=== PATIENT | male | born 1930 | race Caucasian/White ===

== ENCOUNTER 2019-01-23 10:36 | Emergency (ER) | payer MEDICARE, OTHER ==
[~2019-01-23] VITALS: Ht 170.2 cm; Wt 88.5 kg
[~2019-01-23 10:36] MED LIST: ASPIR-LOW81 MG PO; ATENOLOL-CHLOR1 EAC1 PO; CALCIUM600 MG PO; FISH OIL 1,0001 EAC5 PO; HYDROCODON-ACE1 EA11 PO; KLOR-CON 1010 MEQ PO; LISINOPRIL20 MG PO; MACUVITE EYE C1 EACH PO
[2019-01-23] MEDS ORDERED: AMLODIPINE BESYL5 MG PO (10:52)
--- NOTE | 2019-01-23 15:53 | EKG ---
[facility] [address] [facility] [place] [address] Signed Normal sinus rhythm Normal ECG When compared with ECG of 13-NOV-2016 15:15, No significant change was found Confirmed by LIZA ALVARADO MD ([id number]) on 01/23/2019 3:53:04 PM Electronically Signed By: LIZA ALVARADO MD 01/23/19 1553 PATIENT NAME: ARIEL ARNOLDY SURESH Electrocardiogram DATE OF : [birth year] PHYSICIAN: LIZA ALVARADO MD REPORT #: [id number] REPORT IS CONFIDENTIAL AND NOT TO BE RELEASED WITHOUT AUTHORIZATION
[2019-01-23] MEDS ORDERED: ZOFRAN4 MG PO (17:34)
[2019-01-23] MEDS ORDERED: TYLENOL WITH C1 EACH PO (17:34)
[2019-01-23] MEDS ORDERED: PRILOSEC OTC20 MG PO (17:40)
== END 2019-01-23 17:56 | disposition home or self-care (01) ==
LOC: ED 10:36
DX: R19.00 Intra-abdominal and pelvic swelling, mass and lump, unspecified site (principal); N13.30 Unspecified hydronephrosis; E87.1 Hypo-osmolality and hyponatremia; M54.31 Sciatica, right side; N18.9 Chronic kidney disease, unspecified; M51.36 Other intervertebral disc degeneration, lumbar region; Z79.899 Other long term (current) drug therapy; Z79.82 Long term (current) use of aspirin; Z96.641 Presence of right artificial hip joint; E11.22 Type 2 diabetes mellitus with diabetic chronic kidney disease; Z85.038 Personal history of other malignant neoplasm of large intestine; Z85.46 Personal history of malignant neoplasm of prostate; I12.9 Hypertensive chronic kidney disease with stage 1 through stage 4 chronic kidney disease, or unspecified chronic kidney disease
CPT/HCPCS: 71046; 72100; 73502; 74176; 76700; 76705; 80053; 81001; 83690; 84484; 85025; 93005; 93010; 96361; 96374; 99284-25; J2270; J7030

== ENCOUNTER 2019-02-02 05:40 | Day surgery (SDC) | payer MEDICARE, OTHER ==
[~2019-02-02] VITALS: Ht 170.2 cm; Wt 88.0 kg
[~2019-02-02 05:40] MED LIST changes: +AMLODIPINE BESYL5 MG PO; +PRILOSEC OTC20 MG PO; +TYLENOL WITH C1 EACH PO; +ZOFRAN4 MG PO
--- NOTE | 2019-02-02 09:26 | NUR ---
02/02/19 0926 Genesis Jaffe 0906 PT ARRIVED IN PACU SLEEPY. BLOOD SUGAR 106 ON ARRIVAL. 0915 OXYGEN REMOVED. SATS 92-95% ON RA. NO C/O'S PAIN.
--- NOTE | 2019-02-02 10:23 | NUR ---
PT MOSTLY ALERT, ORIENTED AND SUPPORTED BY AND EXTENDED FAMILY. PT'S APPRECIATED PAINT LINE OPERATOR KATE EXPLAINING SURGERY PROCESS IN TERMS SHE FELT SHE COULD UNDERSTAND. FAMILY WAITING FOR G.DAUGHTER TO ARRIVE-SHE IS AN RN AND SEEMS TO HOLD AN IMPORTANT PLACE IN THE FAMILY. STAFF IN, PLANS ON STAYING IN RM. I EXTENDED A BLESSING AND MET WITH FAMILY OUT SIDE OF PT'S RM. HAD PRAYER WITH THEM AND GAVE REASSURANCE. WILL FOLLOW NEEDED
--- NOTE | 2019-02-02 10:26 | NUR ---
0930 PT TO ROOM ALERT AND AWAKE AT BEDSIDE. DENIES PAIN AND NAUSEA. DECLINED WATER OR SNACKS.
--- NOTE | 2019-02-02 10:28 | NUR ---
1028 PT ABLE TO VOID ABOUT 25ML OF BLOOD TINGED URINE.
--- NOTE | 2019-02-02 10:29 | NUR ---
1035 PT TAKING SIPS OF WATER TOLERATES WELL. PULSE DROPS INTO 30'S AND 40'S PT ASYMPTOMATIC.
--- NOTE | 2019-02-02 10:30 | NUR ---
NURSE FAYE SPOKE WITH KATE AGENCY DIRECTOR ABOUT LOW PULSE DETERMINED IT MAY BE LOW PERFUSION TO FINGER PULSE WAS NORMAL IN 60'S DURING PROCEDURE.
--- NOTE | 2019-02-02 19:05 | OR ---
[facility] [address] [place], [place] [address] Signed DATE OF OPERATION: 02/02/2019 SURGEON: Day Chavez MD PREOPERATIVE DIAGNOSES: 1. Large pelvic mass, incidentally found recently upon evaluation for right hip pain. 2. History of prostate cancer. POSTOPERATIVE DIAGNOSES: 1. Large pelvic mass, incidentally found recently upon evaluation for right hip pain. 2. History of prostate cancer. 3. A 2 cm defect in the distal right ureter consistent with active extrinsic compression due to the presence of a large 7 cm right pelvic wall mass. PROCEDURES PERFORMED: 1. Diagnostic cystoscopy with right retrograde pyelogram. 2. Right semi-rigid ureteroscopy with attempted ureteral stent insertion. ANESTHESIA: General. ESTIMATED BLOOD LOSS: None. COMPLICATIONS: None. SPECIMENS: None. DRAINS: None. INDICATION FOR PROCEDURE: Mr. Arnold is a very pleasant 88-year-old gentleman who recently presented to my clinic upon referral from the emergency department after he was found to have [id number] right hydroureteronephrosis associated with a large 7 cm right pelvic wall mass. He has a history of prostate cancer and was treated around a decade ago, but his followup was poor. At that time, he did not remember the last time he had undergone a PSA check. His PSA was obtained a few days ago, was found to be 110. The patient had Electronically Signed By: DAY CHAVEZ MD 02/02/19 1905 PATIENT NAME: ALIZA ARNOLD OPERATIVE REPORT DATE OF : [birth year] REPORT #: [id number] PHYSICIAN: DAY CHAVEZ MD PCP: CANDACE FAIRBANKS MD REPORT IS CONFIDENTIAL AND NOT TO BE RELEASED WITHOUT AUTHORIZATION [facility] [address] [place], [place] [address] Signed presented to the emergency department with right hip pain and was also known to be in chronic renal failure. He also has a remote history of colon cancer treated around 40 years ago. I discussed the option of attempted ureteral stent insertion in an effort to decompress his right kidney and hopefully improve his discomfort. After discussion of the risks and benefits of the procedure, the patient agreed to proceed. OPERATIVE FINDINGS: 1. On cystoscopy, there was no evidence of any suspicious masses, lesions, or stones. Bilateral ureteral orifices are in their normal anatomic location. There is some stiffness in the area of the prostatic urethra upon passage of the cystoscope, which is consistent with his previous history of radiation to the prostate gland. 2. Right retrograde pyelogram was performed, which revealed a severe narrowing of approximately 2 cm of the distal right ureter. From a retrograde pyelogram standpoint, it appeared to be a stricture. However, given his history, I suspect that the severe narrowing is due to the mass effect of the pelvic mass upon the right ureter. I attempted passage of a Sensor wire multiple times into the more proximal portion of the right ureter, however, I was unsuccessful. 3. Right semi-rigid ureteroscopy revealed normal approximately 5 cm of normal distal ureter and then the ureteral lumen significantly loses diameter, and I also believe takes a corkscrew turn of around 260 degrees. Using my ureteroscope, I attempted to pass the wire into the proximal ureter. However, I was unsuccessful. DESCRIPTION OF PROCEDURE: After informed consent was obtained, the patient was taken back to the operating room. He was transferred from the gurney to the operating room table where general anesthesia was induced. He was placed in the dorsal lithotomy position and his genitalia prepped and draped in standard sterile fashion. Using a 30-degree lens on a 22.5-Faroese introducer, rigid cystoscope was inserted through his urethra and into his bladder under direct visualization. Panendoscopic views of bladder then obtained. Please see above findings. I then turned my attention to the right ureteral orifice. I advanced a cone-tipped catheter to the level of the right UO and performed a right retrograde pyelogram, please see above findings. I then cannulated the right ureter using a Sensor wire and attempted to pass the wire to the proximal portion of collecting system. The wire coiled at around in the area of the distal ureter multiple times. I then removed the Sensor wire and advanced a semi-rigid ureteroscope into the distal right ureter, and I repeated a retrograde pyelogram. 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 I again under direct visualization, attempted to pass the wire under direct visualization and through this, strictured area without any success. I then, at this point in time, made the decision to abort the procedure to avoid any potential damage to the ureter with more aggressive attempts at passing the Electronically Signed By: DAY CHAVEZ MD 02/02/19 1905 PATIENT NAME: ALIZA ARNOLD OPERATIVE REPORT DATE OF : [birth year] REPORT #: [id number] PHYSICIAN: DAY CHAVEZ MD PCP: CANDACE FAIRBANKS MD REPORT IS CONFIDENTIAL AND NOT TO BE RELEASED WITHOUT AUTHORIZATION [address] [address] Signed wire through this fairly long area of diminutive ureter. I removed the ureteroscope and then inserted the cystoscope, and drained the patient's bladder completely. The procedure was then terminated. The patient tolerated the procedure well without any complication. He will now be transferred to the postanesthesia care unit in stable condition. DISPOSITION: I discussed the details of today's procedure with the patient's family and answered all of the questions. I informed them that I was unable to safely and successfully pass the stent into the patient's right collecting system due to the presence of significant amount of stenosis at the level of the right pelvic wall mass. I mentioned that the patient does have continued discomfort and would like to pursue treatment for this. There is always the option of a nephrostomy tube. I also reiterated the patient's most recent PSA level of today and offered for him to undergo androgen deprivation therapy in an attempt to reduce the size of this pelvic wall mass. I did inform them today that this would not guarantee reduction in the size of the mass and there is a possibility of side effects such as breast tenderness and hot flashes. The patient's family would like to think about it and then get back to me if they decide to pursue Eligard injections. Otherwise, the patient will follow up on a p.r.n. basis. MD LUANNE Lewis/ALFONSOL /[id number] Copies: ~ Electronically Signed By: DAY CHAVEZ MD 02/02/19 1905 PATIENT NAME: ALIZA ARNOLD OPERATIVE REPORT DATE OF : [birth year] REPORT #: [id number] PHYSICIAN: DAY CHAVEZ MD PCP: CANDACE FAIRBANKS MD REPORT IS CONFIDENTIAL AND NOT TO BE RELEASED WITHOUT AUTHORIZATION
== END 2019-02-02 10:50 | disposition home or self-care (01) ==
LOC: DS 05:40 → OPS 05:40 → DS 06:45 → OPS 10:50
PROVIDERS: Urology
PROC: 0TJ58ZZ Inspection of Kidney, Via Natural or Artificial Opening Endoscopic (ICD-10-PCS; principal; 2019-02-02 06:45)
PROC: BT1DYZZ Fluoroscopy of Right Kidney, Ureter and Bladder using Other Contrast (ICD-10-PCS; 2019-02-02 06:45)
DX: N13.1 Hydronephrosis with ureteral stricture, not elsewhere classified (principal); R19.00 Intra-abdominal and pelvic swelling, mass and lump, unspecified site; I12.9 Hypertensive chronic kidney disease with stage 1 through stage 4 chronic kidney disease, or unspecified chronic kidney disease; N18.4 Chronic kidney disease, stage 4 (severe); Z79.899 Other long term (current) drug therapy; Z87.891 Personal history of nicotine dependence; Z85.46 Personal history of malignant neoplasm of prostate
CPT/HCPCS: 00918; 74420; C1769; J0131; J0696; J1100; J2405; J2704; Q9967

== ENCOUNTER 2019-11-26 17:27 | Inpatient (IN) | payer MEDICARE, OTHER ==
[~2019-11-26] VITALS: Ht 170.2 cm; Wt 83.5 kg
[~2019-11-26 17:27] MED LIST changes: +AMLODIPINE BESY10 MG PO; -AMLODIPINE BESYL5 MG PO; -LISINOPRIL20 MG PO; +LISINOPRIL40 MG PO
--- NOTE | 2019-11-26 22:00 | NUR ---
2129 PATIENT ARRIVED VIA STRETCHER. REQUIRED 2PA TO MOVE OVER TO BED. PATIENT ABLE TO TURN SELF IN BED BUT IS VERY WEAK. ORIENTED X4. VS STABLE. ORAL TEMP 97.9 F. PATIENT DENIES PAIN OR ANY CONCERNS. STATES HE HAS BEEN WEAK THE LAST 3 OR 4 DAYS BUT NO OTHER SYMTPOMS. LUNGS ARE CLEAR, TOLERATING ROOM AIR. NO NAUSEA. ABD MODERATELY DISTENDED. BOWEL SOUNDS ACTIVE. PATIENT IS DUE TO VOID. DENIES NEED AT THIS TIME. FLY LOWER EXTREMITITES ARE COOL AND PALE. 2+ PITTING EDEMA NOTED. ELEVATED ON PILLOW. IV FLUIDS PER ORDER. 2ND SITE STARTED BY DORIS DAVIS. PATIENT DENIES ANY NEEDS AND REPORTS BEING COMOFRTABLE. CALL LIGHT PROVIDED.
--- NOTE | 2019-11-26 23:17 | NUR ---
PATIENT DESATS TO 87-88% ON ROOM AIR WHILE ASLEEP. 2L NC PLACED. PATIENT INCONTINENT OF URINE. ATTENDS REMOVED. PATIENT ABLE TO VOID IN URNAL. NEW LINENS PROVIDED. PATIENT DENIES ANY OTHER CONCERNS. WORK OF BREATHING APPEARS INCREASED WITH MINIMAL ACTIVITY AND AUDIBLE UPPER AIRWAY WHEEZING. PATIENT DENIES FEELING SOB. PATIENT ASSISTED TO REPOSITION WITH HOB ELEVATED.
--- NOTE | 2019-11-26 23:47 | NUR ---
PATIENT DESAT TO 70'S WHILE ON 2L NC DUE TO APPARENT SLEEP APNEA. RECOVERED WITHOUT INTERVENTIONS. HOB ELEVATED >45%.
--- NOTE | 2019-11-27 02:26 | NUR ---
PATIENT INCONTINENT OF A LARGE AMOUNT OF URINE. DHEERAJ CARE AND NEW ATTENDS APPLIED. PATIENT REPOSITIONED WITH HOB ELEVATED. PATIENT CONTINUES TO HAVE UPPER AIRWAY WHEEZING. PATIENT DENIES FEELING SOB. RR 20. O2 SAT 99% 2L NC. LUNGS ARE CLEAR. PATIENT REPORTS PAIN IN LEFT HIP. TYLENOL AND AN ICE PACK PROVIDED.
--- NOTE | 2019-11-27 04:15 | NUR ---
PATIENT INCONTINENT OF URINE. ATTENDS CHANGED. PATIENT DENIES ANY NEEDS. VS STABLE.
--- NOTE | 2019-11-27 06:45 | NUR ---
PATIENT INCONTINENT OF LARGE AMOUNT OF URINE AND LOOSE STOOL. STOOL APPEARS SEMI FORMED AND BROWN. PATIENT UNAWARE OF INCONTINENCE. ORIENTED X3, REPORTS BEING TIRED. AFEBRILE THIS MORNING. VS STABLE. PATIENT REPOSITIONED IN BED WITH WARM BLANKET PROVIDED. BREAKFAST ORDER RECEIVED.
--- NOTE | 2019-11-27 07:30 | NUR ---
REPORT RECIEVED. PATIENT IS LAYING IN BED SLEEPING. NO DISTRESS NOTED.
--- NOTE | 2019-11-27 08:00 | NUR ---
WOKE PATIENT FOR ASSESSMENT. PATIENT DENEIS PAIN. STATES HE FEELS BETTER THIS MORNING. INCONT OF URINE AND ALSO VOIDED 225 ML OF URINE TO URINAL. DENIES PAINFUL URINATION. TALKED WITH PATIENT ABOUT POC FOR DAY, INDICATES UNDERSTANDING. O2 TO RA PATIENT IS AWAKE WITH O2 SAT OF 100 ON 2 L NC. TALKED WIT PATIENT ABOUT POSSIBLE SLEEP APNEA, OF REPORT FROM AIR HOIST OPERATOR O2 SATS IN 80'S AT TIME WHEN PATIENT ASLEEP. THIS NOT WITNESSED BY ME. PATIENT IS EMOTIONAL AT TIME AND SOMEWHAT TEARY WHEN TALKING WITH HIME ABOUT HIS HEALTH. GRANDDAUGHTER IN ROOM.
--- NOTE | 2019-11-27 09:00 | NUR ---
INCONT OF URINE. WHEN CHANGING ATTENDS AND PATIENT MOVING FROM SIDE TO SIDE, PATIENT C/O INCREASED PAIN IN LEFT HIP AREA. PATIENT SAID THIS HAS BEEN BOTHERING HIM FOR SOMETIME.
--- NOTE | 2019-11-27 09:10 | NUR ---
TOOK BREAKFAST WELL. PHYS THERAPY HERE TO PATIENT WORK WITH PATIENT.
--- NOTE | 2019-11-27 09:30 | NUR ---
SPOKE WITH PATIENT BRIEFLY, BUT PT IN TO WORK WITH HIM. TWO GRANDDAUGHTERS HERE, I AM FAMILIAR WITH BOTH THEY WORK HERE, DAVONTE DAVIS AND ANUSHKA MORALEZ. PATIENT LIVES WITH HIS BELINDA [phone] HERE. DOES THE DRIVING. PATIENT HAS WALKER AT HOME AND SHOWER BENCH FOR HIS TUB/SHOWER COMBO. PATIENT DOES NOT LIKE TO SHOWER AND TAKES BATH, WAS STUCK IN THE TUB A COUPLE OF TIMES RECENTLY UNTIL OTHER FAMILY COULD COME AND HELP OUT. DAVONTE HAS GONE AND GOT A BSC AND WHEELCHAIR TO USE AT HOME. PATIENTS BATHROOM IS VERY SMALL. PATIENT INTENDS TO RETURN HOME AT DISCHARGE. DAVONTE HAS RECENTLY BEEN TALKING WITH BOTH PATIENT AND REGARDING ADVANCE DIRECTIVES AND MAYBE ASST LIVING SOMEDAY. THEY ARE NOT READY AT THIS TIME. FAMILY GETS CONCERNED SOMETIMES [place] AND NOT TELL ANYONE ELSE WHERE THEY ARE GOING. THERE ARE MULTIPLE FAMILY MEMBERS CLOSE BY TO HELP NEEDED. UNCLEAR OF NEEDS AT THIS TIME, CM WILL CONTINUE TO FOLLOW.
--- NOTE | 2019-11-27 09:45 | NUR ---
PATIENT REMAINS IN CHAIR, FAMILY MEMBERS ARE IN ROOM.
--- NOTE | 2019-11-27 11:10 | NUR ---
STOOD WITH WALKER TO VOID TO URINAL, ALSO WAS INCONT OF URINE. PATIENT THEN TRANSFERED TO BED. C/O LEFT HIP PAIN, RATES 4/10.
--- NOTE | 2019-11-27 11:21 | NUR ---
TYLENOL 500 MG PO GIVEN FOR C/O LEFT HIP PAIN.
--- NOTE | 2019-11-27 11:40 | NUR ---
SEVERAL FAMILY MEMBERS IN ROOM.
--- NOTE | 2019-11-27 12:39 | NUR ---
TOOK LUNCH WELL. DENIES PAIN. SITTING UP IN BED READING PAPER. NO FUTHER CHANGES.
--- NOTE | 2019-11-27 14:17 | NUR ---
NAPPING, NO DISTRESS NOTED.
--- NOTE | 2019-11-27 15:00 | NUR ---
DR. STOKES HERE TO SEE PATIENT. ORDERS RECIEVED TO DECREASE IVF TO 75ML/HR. THIS DONE. PATIENT WILL BE TRANSFERED TO MEDICAL FLOOR TODAY.
--- NOTE | 2019-11-27 15:20 | NUR ---
PATIENT LYING IN BED WITH EYES OPEN. REPORTS PAIN LEVEL OF 4 IN LEFT HIP. TYLENOL PREVIOUSLY ADMINISTERED. ICE PACK WAS SUPPLIED. SATS 98 ON RA. PATIENT ALERT AND ORIENTED. FAMILY AT BEDSIDE. CALL LIGHT IN REACH.
--- NOTE | 2019-11-27 16:20 | NUR ---
REPORT GIVEN TO MED-SURG.
--- NOTE | 2019-11-27 16:30 | NUR ---
HAS BEEN INC OF URINE AND HAS BEEN ABLE TO USE URINAL AT TIMES. ATTENDS CHANGED AND URINAL EMPTIED FOR 100 ML OF CLEAR YELLOW URINE.
--- NOTE | 2019-11-27 16:45 | NUR ---
TO MED-SURG VIA BED.
--- NOTE | 2019-11-27 17:11 | NUR ---
PT ARRIVED TO FLOOR VIA BED. PT IS ALERT AND ORIENTED. ABX INFUSING. LR AT 0 ON STANDBY. BOWEL TONESS HYPERACTIVE. REPORTS PAIN TO LEFT HIP. ICE APPLIED. ORIENTED TO ROOM. CALL LIGHT IN REACH. DENEIS NEEDS. FAMILY IN TO VISIT.
--- NOTE | 2019-11-27 19:35 | NUR ---
SHIFT REPORT RECIEVED FROM ANNA MARIE DAVIS. PT RESTING IN BED, WATCHING TV. DENIES PAIN. NO OTHER NEEDS, CALL LIGHT IN REACH.
--- NOTE | 2019-11-27 20:22 | NUR ---
ASSESSMENT COMPLETED. BLE EDEMA NOTED. ABD FIRM, PT STATES NORMAL. GCS 15, A&O X3. SCHEDULED MEDS PROVIDED. IV CDI, WNL, FLUSHED WELL. IV FLUIDS INFUSING PER ORDER. NO OTHER NEEDS, CALL LIGHT IN REACH.
--- NOTE | 2019-11-27 20:33 | NUR ---
APPLICATION SECURITY SPECIALIST ROUNDING NOTE. PRIMARY RN AT BEDSIDE. PT DENIES NEEDS AT THIS TIME. CALL LIGHT IN REACH. WHITE BOARD UPDATED.
--- NOTE | 2019-11-27 21:52 | NUR ---
PT REPORTS LEFT HIP PAIN 03/23. PRN PAIN MED PROVIDED. NO OTHER NEDDS, CALL LIGHT IN REACH.
--- NOTE | 2019-11-27 23:15 | NUR ---
IV PUMP ALARMING. L FA IV LEAKING. IV DCd. 20G IN UPPER RIGHT ARM STARTED. FLUSHED WELL. PT TOLERATED WELL. NO OTHER NEEDS, CALL LIGHT IN REACH.
--- NOTE | 2019-11-28 00:15 | NUR ---
PT RESTING IN BED, EYES CLOSED. RR 16, EVEN, UNLABORED. CALL LIGHT IN REACH.
--- NOTE | 2019-11-28 02:22 | NUR ---
PT RESTING IN BED, EYES CLOSED. RR 12, EVEN, UNLABORED. IV INFUSING PER ORDER. CALL LIGHT IN REACH.
--- NOTE | 2019-11-28 02:50 | NUR ---
PT STATES HE HAS 6/10 LEFT HIP PAIN. PRN PAIN MED PROVIDED. BEDDING CHANGED, PT REPOSITIONED. ASSESSMENT AND I&O COMPLETED, NO CHANGES. WARM BLANKETS AND ICE WATER PROVIDED. NO OTHER NEEDS, CALL LIGHT IN REACH.
--- NOTE | 2019-11-28 04:32 | NUR ---
PT RESTING IN BED, EYES CLOSED. RR 16, EVEN, UNLABORED. IV INFUSING PER ORDER. CALL LIGHT IN REACH.
--- NOTE | 2019-11-28 05:13 | NUR ---
PT SLEPT OFF AND ON THIS SHIFT. PT TOLERATED NEW IV PLACEMENT WELL. PRN PAIN MED PROVIDED FOR LEFT HIP PAIN. PT DECLINES TO TRY TO GET UP TO BSC FOR TOIELTING, ATTENDS IN PLACE, URINAL USED. ABD IS FIRM BUT NONTENDER. 1+ BLE EDEMA. UO SUFFICIENT. VSS. GCS 15, A&O X3. PT TOLERATED IV FLUIDS AND MEDS WELL.
--- NOTE | 2019-11-28 06:06 | NUR ---
PT RESTING IN BED, EYES CLOSED. RR 14, EVEN, UNLABORED. CALL LIGHT IN REACH.
--- NOTE | 2019-11-28 07:14 | NUR ---
PATIENT IN BED SNORING. PT WAS AWAKE INTERMITTENTLY THROUGHOUT NIGHT. BED RAILS UP X2. CALL LIGHT IN REACH.
--- NOTE | 2019-11-28 09:04 | NUR ---
PATIENT HAD INCONT EPISODE, THIS DATA WAREHOUSING ARCHITECT AND KIRT HAMMOND DID DHEERAJ CARE. NEW ATTENDS IN PLACE. PATIENT TRANSFERED TO CHAIR FOR BREAKFAST, 1PA FWW. LINENS CHANGED. CALL LIGHT IN REACH. NO FURTHER NEEDS AT THIS TIME.
--- NOTE | 2019-11-28 09:04 | NUR ---
PT INCONT OF STOOL AND URINE. 2PA TO CHANGE ATTENDS AND AMBULATE TO [facility] FOR BREAKFAST. CALL LIGHT AND PERSONAL ITEMS WITHIN REACH. DENIES NEEDS.
--- NOTE | 2019-11-28 10:00 | NUR ---
PATIENT UP IN CHAIR EATING BREAKFAST. FAMILY IN ROOM. COMPLAINING OF LEFT HIP PAIN. TYLENOL ADMINISTERED. SATS 97 ON RA. HYPERACTIVE BOWEL TONES. PATIENT ALERT AND ORIENTED. 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 2 PLUS EDEMA ON LE. CLEAR LUNG SOUNDS. CALL LIGHT IN REACH.
--- NOTE | 2019-11-28 11:09 | NUR ---
PATIENT UP IN CHAIR. MULTIPLE FAMILY MEMBERS IN ROOM. D/C'D FLUIDS PER PHYSICIANS ORDER. CALL LIGHT IN REACH
--- NOTE | 2019-11-28 12:18 | NUR ---
PATIENT UP IN CHAIR READING NEWSPAPER. IN ROOM. ADMINISTERED NORVASC. PATIENT REPORTS 0/10 PAIN. LUNCH AT BEDSIDE. CALL LIGHT IN REACH.
--- NOTE | 2019-11-28 13:25 | NUR ---
PATIENT AMBULATED SBA FWW TO BATHROOM. AMBULATED BACK TO BED. REQUESTING TYLENOL FOR LEFT HIP PAIN. TYLENOL SCHEDULED FOR 1400. OFFERED ICE BAG ALTERNATIVE. PT REFUSED. IN ROOM. PATIENT SUCCESFULLY VOIDED AND SMALL BM IN TOILET. RESPIRATIONS EQUAL AND UNLABORED ON RA. CALL LIGHT IN ROOM.
--- NOTE | 2019-11-28 15:09 | NUR ---
PATIENT AMBULATED TO THE BATHROOM. REPORTING 6/10 PAIN IN LEFT HIP. TYLENOL GIVEN. AMBULATED BACK TO BED. ASSESSMENT COMPLETE. CALL LIGHT IN REACH.
--- NOTE | 2019-11-28 17:07 | NUR ---
PATIENT DIDN'T WANT TO SIT UP IN HIS CHAIR FOR DINNER. SO WE SET HIM UP IN HIS BED. AFTER HE USED THE URINAL.
--- NOTE | 2019-11-28 18:17 | NUR ---
PATIENT SITTING IN BED FINISHING DINNER. STARTED ABX ADMINISTRATION. PATIENT REPORTS NO PAIN. BED RAILS UP X2. CALL LIGHTIN REACH.
--- NOTE | 2019-11-28 19:15 | NUR ---
WE ARE PLANING TOMORROW TO GET HIM INTO THE SHOWER.
--- NOTE | 2019-11-28 19:17 | NUR ---
REPORT RECEIVED FROM DAY SHIFT RN. PT LYING IN BED, ALERT AND ORIENTED. REQUESTING PRN FOR LEFT HIP PAIN. WILL MEDICATE PER E-MAR. CALL LIGHT WITHIN REACH.
--- NOTE | 2019-11-28 19:50 | NUR ---
AUTOMOBILE APPRAISER ROUNDING NOTE. PT'S PRIMARY RN IN ROOM CHANGING BED LINENS, ASSISTANCE PROVIDED BY THIS DOOR FURRING INSTALLER. PT DENIES NEEDS, QUESTIONS, OR CONCERNS AT THIS TIME. PRIMARY RN REMAINS IN ROOM. CALL LIGHT IN REACH. ROOM IN VIEW OF RN STATION.
--- NOTE | 2019-11-28 20:13 | NUR ---
PT INCONTINENT OF LARGE AMOUNT OF URINE. UP TO CHAIR WITH FWW AND SBA TO CHANGE LINEN. DHEERAJ CARE DONE. NEW BRIEF IN PLACE. PT BACK TO BED, OLIVA WELL. PRN GIVEN FOR 6/10 LEFT HIP PAIN. PT REFUSING ICE PACK AT THIS TIME.
--- NOTE | 2019-11-28 21:22 | NUR ---
ASSESSMENT COMPLETE. SCHEDULED MEDS GIVEN WITHOUT ISSUE. PT WAS RESTING WITH EYES CLOSED, STATES THE TYLENOL "MUST HAVE HELPED". PT DENIES FURTHER NEEDS. CALL LIGHT IN REACH.
--- NOTE | 2019-11-29 | NUR ---
PT RESTING IN BED WITH EYES CLOSED, NAD. RR EVEN AND UNLABORED. CALL LIGHT IN REACH.
--- NOTE | 2019-11-29 01:01 | NUR ---
PT INCONTINENT OF LARGE AMOUNT OF URINE. UP TO BED SIDE WITH FWW AND SBA. SKIN CLEANSED, DHEERAJ CARE DONE. CLEAN ATTENDS AND LINEN PROVIDED. PT MEDICATED WITH PRN FOR LEFT HIP PAIN. PT BECAME EMOTIONAL AND TEARY REMINISCING ABOUT HIS PAST AND FAMILY. PT EXPRESSED FRUSTRATION R/T INCREASE IN INCONTINENCE. PT ENCOURAGED AGAIN TO USE NURSE CALL LIGHT FOR ASSISTANCE USING THE URINAL AND/OR GETTING UP TO BR.
--- NOTE | 2019-11-29 03:19 | NUR ---
PT WITH SMALL AMOUNT OF URINE IN THE URINAL AND INCONTINENT ON THE BED AND FLOOR. SKIN CLEANSED, DHEERAJ CARE DONE. FRESH LINEN AND ATTEND PLACED. NO FURTHER NEEDS. CALL LIGHT IN REACH.
--- NOTE | 2019-11-29 06:00 | NUR ---
PT INCONTINENT OF LARGE AMOUNT OF URINE. SKIN CARE AND DHEERAJ CARE DONE. FRESH LINEN AND ATTENDS PROVIDED. ENCOURAGED PT TO USE NURSE CALL LIGHT FOR ASSISTANCE WITH USING URINAL. PRN GIVEN FOR LEFT HIP PAIN. WARM BLANKET GIVEN. CALL LIGHT IN REACH.
--- NOTE | 2019-11-29 07:20 | NUR ---
RECIEVED BEDSIDE REPORT FROM SUSAN CHE. PT IS SLEEPING SOUNDLY, BREATHING EVEN AND UNLABORED WITH NO DIFFICULTY.
--- NOTE | 2019-11-29 09:13 | NUR ---
PT IS UP IN SHOWER WITH MARKET ANALYSIS DIRECTOR. TOLERATING WELL. DENIES PAIN.
[2019-11-29] MEDS ORDERED: POTASSIUM CHLO10 ME2 PO (14:31)
--- NOTE | 2019-11-29 14:35 | NUR ---
MED REC IN PROGRESS. CURRENT LIST IS UPDATED WITH THE EXCEPTION OF A NEW BLOOD PRESSURE MEDICATION. SHE WILL BRING IT IN THE NEXT TIME SHE VISITS.
--- NOTE | 2019-11-29 19:29 | NUR ---
REPORT RECEIVED FROM DAY SHIFT RN. PT LYING IN BED, RESTING WITH EYES CLOSED. RR EVEN AND UNLABORED. WHITE BOARD UPDATED. CALL LIGHT IN REACH.
--- NOTE | 2019-11-29 20:34 | NUR ---
PT RESTING QUIETLY, ALERT, VS COMPLETED, REQUESTING TYLENOL FOR HIP DISCOMFORT, OUTSIDE REPAIRER SPECIAL NOTIFIED.
--- NOTE | 2019-11-29 21:10 | NUR ---
ASSESSMENT COMPLETE. PM MEDS GIVEN WITHOUT ISSUE. PRN GIVEN FOR LEFT HIP PAIN. PT INCONTINENT OR URINE. SKIN AND DHEERAJ CARE DONE. FRESH LINEN AND ATTENDS PROVIDED. PT DENIES OTHER NEEDS. CALL LIGHT IN REACH.
--- NOTE | 2019-11-29 23:35 | NUR ---
CALL LIGHT ANSWERED. HELPED PATIENT USE THE URINAL.
--- NOTE | 2019-11-30 00:30 | NUR ---
PT RESTING IN BED WITH EYES CLOSED, NAD
--- NOTE | 2019-11-30 04:47 | NUR ---
CALL LIGHT ANSWERED. ASSISTED PT WITH USING URINAL. ATTENDS DRY. PT STATES HE'S BEEN RESTING WELL. CALL LIGHT IN REACH.
--- NOTE | 2019-11-30 06:16 | NUR ---
PT SLEPT WELL. ALERT AND ORIENTED. USES CALL LIGHT APPROPRIATELY. SBA WITH FWW. INCONTINENT OF URINE AT TIMES, NEEDS ASSISTANCE WITH URINAL. IV ABX. LEFT HIP PAIN CONTROLLED WITH PRN TYLENOL.
--- NOTE | 2019-11-30 07:15 | NUR ---
RECIEVED BEDSIDE REPORT FROM SUSAN CHE. PT IS SLEEPING COMFORTABLY. CALL LIGHT IN REACH. PT HAS USED CALL LIGHT APROPRIATELY OVERNIGHT, NEEDS ASSISTANCE WITH URNINAL. POSSIBLE DC TODAY.
--- NOTE | 2019-11-30 08:02 | NUR ---
PATIENT RESTING IN BED. PATIENT ASSISTED WITH THE URINAL. PATIENT'S ATTEND CHANGED. ONE PERSON ASSISTING. PATIENT GOES TO SIT UP IN CHAIR. PATIENT USES WALKER. ONE PERSON ASSISTING. SETS UP TABLE FOR BREAKFAST. WARM BLANKET PROVIDED. LINENS CHANGED. ICE WATER GIVEN. CALL LIGHT WITHIN REACH. NO OTHER NEEDS AT THIS TIME
--- NOTE | 2019-11-30 08:10 | NUR ---
PT IS SITTING UP IN CHAIR EATING BREAKFAST. WILL DELAY ASSESMENT UNTIL HE IS FINISHED. CALL LIGHT IN LAP. NO COMPALINTS AT THIS TIME.
--- NOTE | 2019-11-30 09:02 | NUR ---
PATIENT SITTING UP IN CHAIR. VISITOR IN ROOM. VITAL SIGNS AND I&O DONE. CALL LIGHT WITHIN REACH. NO OTHER NEEDS AT THIS TIME
--- NOTE | 2019-11-30 11:03 | NUR ---
PT IS UP IN CHAIR, DENIES NEED FOR ANYTHING AT THIS TIME. FAMILY AT BEDSIDE.
[2019-11-30] MEDS ORDERED: TOPROL XL25 MG PO (11:18)
--- NOTE | 2019-11-30 11:19 | NUR ---
MED REC COMPLETE
--- NOTE | 2019-11-30 11:30 | NUR ---
In and spoke with pt and his . Pt lives in [place] with his . Has a walker, wc, and a commode. 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 Has been declining. states they have a lot of support. Discussed if they would be interested in hospice and she states they would be. Dr. Allen notified and orders received. Chart faxed to hospice at [facility] per 's choice. requests if we have information we give it to Moni Uriarte, Granddaughter, nurse at [facility].
[2019-11-30] MEDS ORDERED: CEFPODOXIME PR200 MG PO (12:37)
[2019-11-30] MEDS ORDERED: LIDOCAINE1 EACH TD (12:39)
--- NOTE | 2019-11-30 13:20 | NUR ---
RN REMOVED IV FROM AC. CATH INTACT. PT TOLERATED WELL.
--- NOTE | 2019-11-30 13:29 | NUR ---
PATIENT SITTING UP IN CHAIR. IN ROOM. VITAL SIGNS AND I&O DONE. CALL LIGHT WITHIN REACH. NO OTHER NEEDS AT THIS TIME
--- NOTE | 2019-11-30 14:30 | NUR ---
Call from Granddaughter, Moni. Updated I spoke with pt and about Hospice and have sent a chart to [facility] at request of . She surprised as she states they seldom request or agree to help. Let her know I sent the chart, they may decline when hospice calls.
== END 2019-11-30 13:35 | disposition home or self-care (01) | DRG 871 ==
LOC: ED 17:27 → CCU 20:06 → MS 11-27 16:46
PROVIDERS: ADMIT Internal Medicine
DX: A41.89 Other specified sepsis (principal); G93.41 Metabolic encephalopathy; N10 Acute pyelonephritis; N17.9 Acute kidney failure, unspecified; N18.4 Chronic kidney disease, stage 4 (severe); E87.1 Hypo-osmolality and hyponatremia; B96.1 Klebsiella pneumoniae [K. pneumoniae] as the cause of diseases classified elsewhere; N13.9 Obstructive and reflux uropathy, unspecified; I12.9 Hypertensive chronic kidney disease with stage 1 through stage 4 chronic kidney disease, or unspecified chronic kidney disease; D63.1 Anemia in chronic kidney disease; R29.6 Repeated falls; R19.03 Right lower quadrant abdominal swelling, mass and lump; E86.1 Hypovolemia; Z79.899 Other long term (current) drug therapy; Z66 Do not resuscitate
CPT/HCPCS: 36415; 51701; 71045; 74176; 80048; 80053; 81001; 82565; 83605; 84520; 85025; 87077; 87088; 87186; 97110; 97116; 97162; 97166; 97535; 99285-25; J0696; J1650; J7030; J7121